=== PATIENT | female | born 1955 | race Two or more races ===

== ENCOUNTER → 2024-07-28 | Outpatient (CLI) | payer SELFPAY ==
--- NOTE | 2024-07-28 12:00 | XR_ITS ---
Examination: Breast ultrasound, unilateral, left complete Date and time of exam: July 28, 2024 1345 hours INDICATIONS: Left outer breast axillary pain 42 years, mammogram May 13, 2024 grouped microcalcifications 12:00 position left breast Technique: Real-time weems scale ultrasonographic imaging performed left breast including all 4 quadrants as well as nipple retroareolar and axillary region. Findings: No cystic or solid mass Multiple axillary lymph nodes, the largest 4.2 x 4.0 cm IMPRESSION: BI-RADS Category 3: Probably benign findings Recommend 1 additional 6 month left breast axillary sonography follow-up to document stability of enlarged left axillary lymph nodes
--- NOTE | 2024-07-28 13:15 | XR_ITS ---
Examination: Diagnostic digital mammography, unilateral, left Computer aided detection 3-D breast Tomosynthesis, unilateral Date and time of exam: July 28, 2024 1355 hours INDICATIONS: Grouped microcalcifications 12:00 position left breast Technique: Nonmagnified MLO, CC views of the left breast have been obtained, reconstructed from 3-D Tomosynthesis images. R2 computer aided detection program utilized for evaluation of suspicious masses and/or abnormal calcifications. 3-D Tomosynthesis images obtained. Findings: Scattered areas of fibroglandular density Probably benign calcifications 12:00 position left breast Impression: BI-RADS category 3: Probably benign findings Recommend 1 additional 6 month left mammogram follow-up
== END | disposition home or self-care (01) ==
PROVIDERS: PCP Physician Assistant; Referring Provider Physician Assistant; Visit Provider Physician Assistant
DX: R92.332 Mammographic heterogeneous density, left breast (principal); R59.0 Localized enlarged lymph nodes
CPT/HCPCS: 76641; 77061; 77065; G0279